=== PATIENT | female | born 1955 | race Caucasian/White ===

== ENCOUNTER 2024-05-27 18:39 | Emergency (ER) | payer MEDICARE, OTHER, SELFPAY ==
[2024-05-27 18:54] VITALS: BP 158/98
[2024-05-27 19:13] LABS: Hemoglobin 13.2 g/dL (12.0-16.0); Mean Corp Hgb Conc. 34.7 g/dL (33.0-37.0); Mean Corpuscular Hgb 30.7 pg (27.0-31.0); Mean Corpuscular Volume 88.4 fL (81.0-99.0); Platelet Count 256 10^3/uL (130-400); Red Cell Dist. Width 13.7 % (11.5-14.5); White Blood Cell Count 12.9 10^3/uL (4.8-10.8)
[2024-05-27 19:35] LABS: % Basophils 0.4 % (0-2); % Eosinophils 2.5 % (0-6); % Immature Granulocytes 0.1 % (0-0.5); % Lymphocytes 62.3 % (20.5-51.1); % Monocytes 4.7 % (1.7-9.3); Absolute Basophils 0.1 10^3/uL (0-0.2); Absolute Eosinophils 0.3 10^3/uL (0-0.7); Absolute Monocytes 0.6 10^3/uL (0.1-0.6); Absolute Neutrophils 3.9 10^3/uL (1.4-6.5); Nucleated Red Blood Cells % 0 %
[2024-05-27 19:42] LABS: ALT (SGPT) 20 U/L (0-35); AST (SGOT) 31 U/L (14-36); Albumin 4.1 g/dl (3.5-5.0); Alkaline Phosphatase 78 U/L (38-126); Blood Urea Nitrogen 12 mg/dl (7-17); Calcium 8.7 mg/dl (8.4-10.2); Carbon Dioxide 26 mmol/L (22-30); Chloride 104 mmol/L (98-107); Glucose 102 mg/dl (70-99); Potassium 4.4 mmol/L (3.5-5.1); Sodium 137 mmol/L (135-145); Total Bilirubin 0.4 mg/dl (0.2-1.3); Total Protein 7.2 g/dl (6.3-8.2); eGFR > 60.00
[2024-05-27 20:33] VITALS: BMI 25.7
[2024-05-27 20:34] VITALS: BP 131/85
--- NOTE | 2024-05-27 20:40 | ED.GENMED ---
History of Present Illness
General
Chief Complaint: Abdominal Pain
Source: patient
Exam Limitations: none
Time Seen by Provider: 05/27/24 19:41
Nursing documentation reviewed up to this point in time: agreed with
History of Present Illness
History of Present Illness:
Patient is a 68-year-old female who tested positive for COVID last week. She has 1 more dose of Paxlovid left but did not take it because of symptoms. She started last night woth diarrhea all throughout the night and off-and-on intermittent
sharp lower abdominal pains . This morning she thought she was having a bowel movement and instead produced a small blood clot. She has had intermittent lower abdominal pains since. She denies any fever or chills. She denies any diarrhea since
.she did have a colonoscopy in April which was unremarkable she denies any shortness of breath.
Past History
Past History
ED Past Medical History: Other (Rheumatoid arthritis)
ED Past Surgical History: (X1) and Orthopedic
Social History
Tobacco: Former smoker
Alcohol: Occasional
Drug: None
Personal:
Living: with family
Employment: Employed (Works as a principal)
Review of Systems
Review of Systems
Allergies reviewed?: Yes
All Other Systems: ROS reviewed and negative except as documented in HPI and ROS
Constitutional: Reports fatigue; Denies fever
EENT: Reports no symptoms
Respiratory: Reports no symptoms
Cardiac: Reports no symptoms
ABD/GI: Reports diarrhea and other (pass a bright red blood clot this am )
: Reports no symptoms
Musculoskeletal: Reports no symptoms
Skin: Reports no symptoms
Neurological: Reports no symptoms
Psychiatric: Reports no symptoms
Phy Exam
General Physical Exam
General Presentation: no apparent distress
General age: appears stated age
General Skin: warm and dry
General Habitus: normal
General Mental: alert
General Hydration: appears well hydrated
Gastrointestinal Exam
Gastrointestinal Exam: soft and other (non specific abd tenderness )
Neurological Exam
Neurological Exam: alert and oriented x3
Musculoskeletal Exam
Musculoskeletal Exam: full ROM
Skin Exam
Skin Exam: warm/dry
Course
Orders/Labs/Results
Orders:
Orders
05/27/24 19:04
Complete Blood Count/With Diff Urgent
Comprehensive Metabolic Panel Urgent
05/27/24 20:38
0.9% Sodium Chloride 1000 ml [Nss] 1,000 ml IV BOLUS
05/27/24 20:59
CT Abd/Pel (IV only)-DH only Urgent
Comment:
Reason For Exam: Lower abdominal pain
05/28/24 00:02
Amoxicillin 875 mg/Clav 125 mg [Augmentin 875 mg/125 mg] 1 tablet PO NOW STA
Abnormal Lab Results
05/27/24
19:04
WBC 12.9 H 10^3/uL
(4.8-10.8)
Absolute Lymphs (auto) 8.0 H 10^3/uL
(1.2-3.4)
Neutrophils % 30.0 L %
(42.2-75.2)
Lymphocytes % 62.3 H %
(20.5-51.1)
Glucose 102 H mg/dl
(70-99)
05/27/24 19:04
05/27/24 19:04
Vital Signs
Initial and Last Documented VS:
Initial Vital Signs
Temp Pulse Resp BP Pulse Ox
98.2 F 70 24 158/98 97
05/27/24 18:54 05/27/24 18:54 05/27/24 18:54 05/27/24 18:54 05/27/24 18:54
Last Documented Vital Signs
Temp Pulse Resp BP Pulse Ox
98.2 F 59 13 133/90 99
05/27/24 18:54 05/27/24 22:00 05/27/24 22:00 05/27/24 22:00 05/27/24 22:00
[employer]oplesoft Analyst consulted with Physician
Peoplesoft Analyst consulted with physician?: Yes
Name of Physician Consulted: Edward
MDM/Problems Addressed
Differential Diagnosis Includes:
Not limited to rectal bleed, colitis diverticulitis
MDM/Problems Addressed:
Patient to tested positive for COVID 1 week ago presents with diarrhea throughout the night and an episode of rectal bleed this morning. She has had some intermittent cramping. She presents awake alert no acute distress abdomen mild nonspecific
tenderness. CAT scan does show long segment colitis extending from the distal transverse colon to the proximal sigmoid colon. Patient is afebrile here white count 12.9. Patient nontoxic in no acute distress stable for discharge home. As
discussed with ED physician will DC with Augmentin with close outpt f/u by pcp . d/c additional findings on CAT scan including pulmonary nodule.
*Radiology
Radiology exam reviewed: radiology read reviewed
*Critical Care Note
Total Time (30-74mins, 75-104mins- exclusive of procedures): Not Applicable
ED Attending Note
-
Portions of this chart may have been created with voice recognition software.� Occasional wrong word or��sound alike� substitutions may have occurred due to the inherent limitations of voice recognition software.
Discharge Plan
Departure
Patient Disposition: Home (Routine Discharge)
Date of Disposition: 05/28/24
Time of Disposition: 00:07
Admit to: Med/Surg
Patient with high blood pressure during this ER visit?: Yes
Condition: Fair
Covid-19: Not Applicable
Discharge Problem:
Colitis
Instructions: Colitis (DC), BLOOD PRESSURE
Prescriptions:
New
amoxicillin-pot clavulanate 875-125 mg tablet
1 tab PO BID Qty: 20 0RF
No Action
multivitamin 1 EACH tablet
1 ea PO DAILY
calcium carbonate 600 MG tablet
1,200 mg PO DAILY
escitalopram oxalate 10 MG tablet
10 mg PO DAILY
cyclosporine [Restasis] 10 DROPS dropperette
0.4 ml OPHTHALMIC DAILY
cholecalciferol (vitamin D3) 2,000 UNIT tablet
2,000 unit PO DAILY
adalimumab [Humira(CF)] 40 MG/0.4 ML syringe kit
40 mg SQ .EVERYTWOWEEKS
Referrals:
UNKNOWN - PT DOES,NOT KNOW [Family Provider] -
Activity Restrictions/Additional Instructions:
As discussed CAT scan does show colitis. You were given first dose of antibiotic here in the ER and a prescription for the next days was sent to the pharmacy. Take as directed. [employer] for the next several days. Also as discussed there was a
4 mm nodule in the left lower lobe please follow-up with your family doctor for this. Return if any worsening of symptoms and follow-up with your family doctor for reevaluation.
Return if any worsening of symptoms
Interventions
Interventions:
*Risk Screen - Suicide Last Done: 05/27/24 18:54
*General Assessment Last Done: 05/27/24 20:33
*Neglect/Abuse Screening Last Done: 05/27/24 18:54
ED- Fall Risk Assessment Last Done: 05/27/24 20:33
*ED COVID-19 Vaccine History Last Done: 05/27/24 20:33
LS-Jariys-Iaymfcjhfg Assessment Last Done: 05/27/24 20:33
ED- Cardiac Assessment Last Done: 05/27/24 20:33
ED- Pulmonary Assessment Last Done: 05/27/24 20:33
Discharge Date and Time
Print Language: SOUTH AFRICAN
[2024-05-27] MEDS: NSS 1000 IV (20:51)
[2024-05-27 21:00] VITALS: BP 130/74
[2024-05-27 22:00] VITALS: BP 133/90
[2024-05-28] MEDS: AUGMENTIN 875 MG/125 MG 1 TABLET PO (00:53)
== END 2024-05-28 01:14 | disposition home or self-care (01) ==
LOC: EMR 18:39
PROVIDERS: Student in an Organized Health Care Education/Training Program; EMERGENCY PHYSICIAN Student in an Organized Health Care Education/Training Program
DX: K52.9 Noninfective gastroenteritis and colitis, unspecified (principal); R03.0 Elevated blood-pressure reading, without diagnosis of hypertension; Z87.891 Personal history of nicotine dependence
CPT/HCPCS: 99285; 96360; 74177; 80053; 85025; Q9967

== ENCOUNTER → 2024-12-14 12:21 | Outpatient (REF) | payer MEDICARE, OTHER, SELFPAY | LOC: WDC 12:21 | PROVIDERS: ATTENDING PHYSICIAN Obstetrics & Gynecology; FAMILY PHYSICIAN Internal Medicine | DX: Z12.31 Encounter for screening mammogram for malignant neoplasm of breast (principal) | CPT/HCPCS: 77063; 77067 ==

== ENCOUNTER → 2025-06-04 11:07 | Outpatient (REF) | payer MEDICARE, OTHER, SELFPAY | LOC: HWRAD 11:07 | PROVIDERS: ATTENDING PHYSICIAN Internal Medicine; REFERRING PHYSICIAN Internal Medicine Rheumatology | DX: G89.29 Other chronic pain (principal) | CPT/HCPCS: 72100 ==

== ENCOUNTER 2025-06-08 14:28 | Emergency (ER) | payer MEDICARE, OTHER, SELFPAY ==
[2025-06-08] VITALS (30 sets, daily range): BP systolic 121–164; BP diastolic 71–113; BMI 26.4
[2025-06-08] MEDS: DILAUDID 0.5 MG IV (15:01)
--- NOTE | 2025-06-08 15:04 | ED.GENMED ---
History of Present Illness
General
Chief Complaint: Fall
Source: patient
Exam Limitations: none
Time Seen by Provider: 06/08/25 14:43
Nursing documentation reviewed up to this point in time: agreed with
History of Present Illness
History of Present Illness:
Note:
CHIEF COMPLAINT(S)
Fall resulting in left shoulder and head injury.
HISTORY OF PRESENT ILLNESS
The patient is a 69-year-old female who experienced a fall while descending into her garage. Initially, she landed on her left shoulder before hitting her head. She reported immediate bleeding from the head wound. Her was present at the
scene, preparing to leave in the car. Upon assessment, she expressed difficulty moving her left shoulder, describing it as 'stuck.' The patient also reported pain in her shoulder and head, specifically where she hit it. She was evaluated for
potential dislocation or fracture of the shoulder. The patient described herself as generally good with pain, yet noted significant discomfort when attempting to move the injured shoulder. EMS administered an unknown pain medication en route to the
facility.
ALLERGIES
The patient reports an allergy to 'blood fingers' (interpretation needed for clarity).
REVIEW OF SYSTEMS
- Musculoskeletal: Left shoulder pain and limited mobility.
- Neurological: Head pain following impact with bleeding noted at the site of injury.
PHYSICAL EXAM
General: Alert, no acute distress.
Skin: Warm, dry. Laceration present on left eyebrow.
Head: Normocephalic, atraumatic. No bleeding noted at present, but past bleeding reported.
Neck: Supple, trachea midline.
Eye, Ears, Nose, Mouth, and Throat: Oral mucosa moist.
Cardiovascular: Normal peripheral perfusion, No edema.
Respiratory: Respirations are non-labored.
Gastrointestinal: Abdomen nondistended.
Back: Normal range of motion, Normal alignment.
Musculoskeletal: Normal right shoulder range of motion. Limited range of motion on the left shoulder, likely dislocation, pain upon movement. Normal ROM on lower extremities.
Neurological: Alert and oriented to person, place, time, and situation, No focal neurological deficit observed.
Psychiatric: Cooperative, appropriate mood & affect.
PROBLEM LIST
- Acute: Suspected left shoulder dislocation, Head trauma with eyebrow laceration.
PLAN
- Administer pain medication for comfort.
- Obtain X-rays to evaluate the potential dislocation or fracture of the left shoulder.
- Conduct a CT scan of the head and neck to rule out intracranial bleeding and assess for other injuries.
- Consider sutures or skin adhesive for eyebrow laceration after cleaning the wound.
DIFFERENTIAL DIAGNOSIS
The Differential Diagnosis includes, in no particular order and is not limited to:
1. Left shoulder dislocation
2. Left shoulder fracture
3. Closed head injury
4. Concussion
5. Subdural hematoma
6. Epidural hematoma
7. Cervical spine injury
8. Contusion of the scalp
9. Scapular fracture
10. Brachial plexus injury
CARE-UPDATE
06/08/25 - 18:02
Patient tolerated sedation well. Noticed discoloration of the left eyebrow, appearing blue. CT scan of head shows no signs of fracture. Plan to proceed with a short-term follow-up.
EKG
My independent EKG interpretation is:
- Time of EKG: Not specified
- Rhythm: Normal sinus rhythm
- Heart Rate: Not specified
- [place]: Normal
- VT Interval: Normal
- QRS Duration: Normal
- QT Interval: Normal
- Abnormalities: End of ischemia (not further specified)
Disposition:
SUMMARY OF ENCOUNTER
The patient, a 69-year-old female, was evaluated in the emergency department after a fall resulting in injuries, including a left shoulder dislocation and a laceration on the left eyebrow. She initially landed on her left shoulder, followed by a
head injury, causing immediate bleeding from her head. On examination, she experienced difficulty and pain with left shoulder movement and reported head pain. Her shoulder was assessed for dislocation or fracture, and her head injury for potential
intracranial bleeding. Management included pain control, imaging studies, and wound assessment for suturing.
DISPOSITION
The patient was discharged with instructions to follow up with orthopedics.
ASSESSMENT
- Left shoulder dislocation
- Left proximal humerus fracture
- Scalp laceration over the left eyebrow due to fall
PLAN
- Administered pain medication for comfort.
- X-rays of the left shoulder to evaluate for fracture or dislocation.
- Considered suturing the eyebrow laceration after proper cleaning.
- Advised following up with an bilingual customer service specialist for further management.
INDEPENDENT REVIEW OF LABS AND INTERPRETATION OF TESTS
- My independent interpretation of the CT scan of the head shows no signs of fracture.
FOLLOW-UP INSTRUCTIONS
- Follow up with bilingual customer service specialist as advised for further evaluation and management.
MEDICATION RECONCILIATION
- Pain medication was administered (specific medication not specified) for comfort during the emergency department visit.
MEDICAL DECISION MAKING
1. Number and Complexity of Problems Addressed:
- Chronic conditions affecting care: Left shoulder dislocation, Left proximal humerus fracture, Scalp laceration over the left eyebrow.
- Differential diagnosis includes left shoulder dislocation, left shoulder fracture, closed head injury, concussion, subdural hematoma, epidural hematoma, cervical spine injury, contusion of the scalp, scapular fracture, and brachial plexus injury.
2. Data:
- Category 1: Tests and documents (X-rays of the left shoulder and CT scan of the head were ordered and independently reviewed).
- Category 2: None applicable.
- Category 3: Discussion of management of orthopedic follow-up and review of imaging results.
3. Risk:
- Consideration of testing with risks (CT scan, X-ray).
- Prescription medication was administered in the emergency department for pain management.
DIAGNOSIS
- Left shoulder dislocation (ICD-10: S43.009A)
- Laceration of eyebrow (ICD-10: S01.111A)
- Fracture of the left proximal humerus (ICD-10: S42.302A)
Past History
Past History
ED Past Medical History: Other (Rheumatoid arthritis)
ED Past Surgical History: (X1) and Orthopedic
Social History
Tobacco: Former smoker
Alcohol: Occasional
Drug: None
Personal:
Living: with family
Employment: Employed (Works as a principal)
Phy Exam
Physical Exam
Physical Exam:
.
Course
Orders/Labs/Results
Orders:
Orders
06/08/25 14:55
CT Head W/o Iv Contrast Urgent
Comment:
Reason For Exam: fall, hit head
Cervical Spine wo Contrast CT [CT Cervical Spine W/o Iv Contr] Urgent
Comment:
Reason For Exam: fall, neck pain
EKG- Treatment ONCE
IV Insert/Care/Rem.- Treatment PRN
HYDROmorphone [Dilaudid] 0.5 mg IV NOW STA
06/08/25 14:57
Electrocardiogram (*1) Urgent
Reason for Study: Other
Other Reason for Exam: Provider order
CR Shoulder - Left 1 View Urgent
Reason For Exam: fall, left shoulder deformity
06/08/25 15:11
ASA Classification Routine
Propofol [Diprivan] 80 mg IV NOW STA
06/08/25 15:12
Propofol [Diprivan] 20 ml .ROUTE .STK-MED
06/08/25 15:41
CR Shoulder, Trauma - Left Urgent
Reason For Exam: post-reduction
06/08/25 17:21
Acetaminophen [Tylenol] 650 mg PO NOW STA
Vital Signs
Initial and Last Documented VS:
Initial Vital Signs
Temp Pulse Resp BP Pulse Ox
98.3 F 68 20 158/87 99
06/08/25 14:37 06/08/25 14:37 06/08/25 14:37 06/08/25 14:37 06/08/25 14:37
Last Documented Vital Signs
Temp Pulse Resp BP Pulse Ox
98 F 74 18 135/85 98
06/08/25 16:53 06/08/25 16:53 06/08/25 16:53 06/08/25 16:55 06/08/25 16:55
Procedures
Moderate Sedation
ASA Risk Score: Class II
Chart and allergies reviewed: Yes
Consent for anesthesia obtained: Yes
Time out completed (validating right patient & procedure): Yes
Moderate Sedation Start Time(when first medication is given): 15:40
History of difficult intubation: No
Airway free of obstruction: Yes
Patient has a gag reflex: Yes
Patient is able to open mouth: Yes
Patient has no dentures: Yes
Patient has no loose teeth: Yes
Medication administered by Provider during Moderate Sedation: IV Propofol (mg)
Total dose administered: 70
Time drug administered: 15:40
Moderate Sedation Procedure End Time: 15:52
Laceration Closure
Left Eye brow:
Status of Wound: clean
Size of Wound in cm: 2
Description of Wound Edges: sharp
Preparation: cleaned with saline
Revision/Debridement: routine- no revision
Wound exploration: explored to base- no FB
Type of Closure: Dermabond-skin glue
Joint/Fracture Reduction
Left Shoulder:
Indication for procedure:: left shoulder dislocation
Procedure completed by: Alex
Consent form signed: Yes
Joint reduced: with anesthesia sedation
Anesthesia/sedation: Moderate sedation
Injury was: closed
Further treatement: no treatment needed
Post reduction exam: stable
Capillary Refill: normal
Normal distal neurovascular exam?: Yes
Peripheral Pulses: radial (left): 4+ and radial (right): 4+
*Pulse Oximetry
SaO2: 97
Oxygen Mode of Delivery: Room air
Patient hypoxic: no
*Critical Care Note
Total Time (30-74mins, 75-104mins- exclusive of procedures): Not Applicable
ED Attending Note
-
Portions of this chart may have been created with voice recognition software.� Occasional wrong word or��sound alike� substitutions may have occurred due to the inherent limitations of voice recognition software.
Discharge Plan
Departure
Patient Disposition: Home (Routine Discharge)
Date of Disposition: 06/08/25
Time of Disposition: 18:02
Patient with high blood pressure during this ER visit?: Yes
Condition: Good
Discharge Problem:
Anterior dislocation of left shoulder, Hill Sachs deformity, left, Laceration of eyebrow, left, Fall
Instructions: Laceration Repair With Glue (DC), Shoulder Dislocation (DC), Preventing falls in adults, BLOOD PRESSURE
Prescriptions:
No Action
multivitamin 1 EACH tablet
1 ea PO DAILY
escitalopram oxalate 10 MG tablet
10 mg PO DAILY
cholecalciferol (vitamin D3) 2,000 UNIT tablet
2,000 unit PO DAILY
prednisone 5 mg tablet
5 mg PO DAILYPRN PRN (Reason: inflammation)
methenamine hippurate 1 gram Tablet
1 g PO DAILY
ibuprofen 200 mg Tablet
400 mg PO DAILYPRN PRN (Reason: mild pain)
Estring 2 mg (7.5 mcg /24 hour) ring
1 vag ring VAGINAL Q3M
Theracran 650 mg Capsule
650 mg PO DAILY
Simponi ARIA 12.5 mg/mL Solution
100 mg IV Q8W
Cequa 0.09 % dropperette
1 drp BOTH EYES BID
Referrals:
Jenelle Montoya DO [Family Provider, Family Practice] - Call in 1-3 days for appt
Curtis Easley MD [Active, Orthopedics] - Call in 1-3 days for appt
Interventions
Interventions:
*Risk Screen - Suicide Last Done: 06/08/25 14:37
*General Assessment Last Done: 06/08/25 14:37
*Neglect/Abuse Screening Last Done: 06/08/25 14:37
*ED- Fall Risk Assessment Last Done: 06/08/25 14:37
*ED COVID-19 Vaccine History Last Done: 06/08/25 14:37
ED-Musculoskeletal Assessment Last Done: 06/08/25 14:42
ED- Neurological Assessment Last Done: 06/08/25 14:42
ED-Skin Assessment Last Done: 06/08/25 14:42
Discharge Date and Time
Print Language: AUSTRIAN
[2025-06-08] MEDS: TYLENOL 650 MG PO (17:24)
== END 2025-06-08 18:18 | disposition home or self-care (01) ==
LOC: EMR 14:28
PROVIDERS: EMERGENCY PHYSICIAN Emergency Medicine; FAMILY PHYSICIAN Internal Medicine
DX: S43.015A Anterior dislocation of left humerus, initial encounter (principal); S42.292A Other displaced fracture of upper end of left humerus, initial encounter for closed fracture; S01.112A Laceration without foreign body of left eyelid and periocular area, initial encounter; R03.0 Elevated blood-pressure reading, without diagnosis of hypertension; M06.9 Rheumatoid arthritis, unspecified; Z87.891 Personal history of nicotine dependence; W17.89XA Other fall from one level to another, initial encounter; Y92.008 Other place in unspecified non-institutional (private) residence as the place of occurrence of the external cause
CPT/HCPCS: 99285; 23650; 12001; 96374; 70450; 72125; 73020; 73030; 93005